=== PATIENT | male | born 1995 | race African-American/Black ===

== ENCOUNTER 2020-03-25 20:43 | Emergency (ER) | payer MEDICAID ==
[~2020-03-25] VITALS: Ht 180.3 cm; Wt 99.8 kg
[2020-03-25] MEDS ORDERED: Omnipaque-300 100ml vial INJ ONE (21:15)
[2020-03-25 21:18] LABS: APPEARANCE,URINE CLEAR; BASOPHILS % (AUTO) 2.1 % (0.0-2.0); BILIRUBIN, URINE NEGATIVE (NEGATIVE); COLOR,URINE PALE YELLOW; EOSINOPHILS % (AUTO) 3.6 % (0.0-3.0); GLUCOSE, URINE (UA) NEGATIVE (NEGATIVE); HEMATOCRIT 49.6 % (42.0-52.0); HEMOGLOBIN 16.5 G/DL (14.2-18.0); KETONES,URINE NEGATIVE (NEGATIVE); LEUKOCYTE ESTERASE ,URINE NEGATIVE (NEGATIVE); MEAN CORPUSCULAR VOLUME 93 FL (80-99); MONOCYTES % (AUTO) 7.9 % (1.0-10.0); NEUTROPHILS % (AUTO) 52.4 % (45.0-75.0); NITRITE,URINE NEGATIVE (NEGATIVE); PH,URINE 5 (4.5-8.0); PLATELET COUNT 161 K/UL (150-450); PROTEIN,URINE NEGATIVE (NEGATIVE); RED BLOOD COUNT 5.31 M/UL (4.70-6.10); RED CELL DISTRIBUTION WIDTH 13.1 % (11.6-14.8); UROBILINOGEN,URINE NORMAL MG/DL (0.0-1.0); WHITE BLOOD COUNT 10.2 K/UL (4.8-10.8)
--- NOTE | 2020-03-25 21:20 | Emergency Room Report ---
History of Present Illness General Chief Complaint: Abdominal Pain Source: Patient Present Illness HPI Disclaimer: Please note that this report is being documented using DRAGON technology. This can lead to erroneous entry secondary to incorrect interpretation by the dictating instrument. HPI: 24-year-old male with history of pancreatitis presents for evaluation of abdominal pain. The patient notes a sharp and sometimes aching epigastric and periumbilical abdominal pain for the past 3 weeks. Pain is exacerbated by eating and relieved by rest. He has not been using antacids. He denies recent alcohol use. States it feels similar to his prior episodes of pancreatitis but has no history of gallstones or gallbladder disease. Denies fever, chills. This afternoon while at work the pain was more intense and radiated to his back and upper chest. He denied shortness of breath cough. He did note one episode of hemoptysis which described a blood clot that he brought up. He has had vomiting and diarrhea intermittently throughout the past 3 weeks. 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 Denies drug use. Occasional tobacco use. 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 EOMI. Cardiovascular: RRR. S1 and S2 normal. No murmur appreciated Resp: Normal work of breathing. No cough, wheezing or crackles appreciated Abdomen: Abdomen is soft, nondistended. There is mild tenderness in the epigastrium and periumbilical region. No significant tenderness in the right upper quadrant and no Villareal's tenderness. No rebound in the right lower quadrant or tenderness. Skin: Intact. No abrasions, laceration or rash over the exposed skin MSK: Normal tone and bulk. Moving all extremities. No obvious deformity. Neuro: Awake and alert. Mentating appropriately. Medical Decision Making Diagnostic Impression: Primary Impression: Abdominal pain ER Course 24-year-old male history of pancreatitis presents evaluation of abdominal pain and vomiting now radiating to the upper chest and one episode of hemoptysis. Differential includes was not limited to gastritis, gastroenteritis, peptic ulcer, perforated ulcer, pancreatitis, cholecystitis, choledocholithiasis, appendicitis, bowel obstruction, GERD, esophagitis, ACS to name a few. IV line established, patient receiving IV fluids, antiemetics, antacids. Will send broad labs and send patient for CT scan of the torso to evaluate for follow-up possible perforated ulcer. 2230: Labs have returned within normal limits. No evidence of pancreatitis, hepatic obstruction, cholecystitis, no white count, normal renal function. CT scan of the torso with IV contrast does not show signs of esophagitis, perforated ulcer , intra-abdominal mass or other pathology. Patient likely has gastritis and will be started on antacids and antiemetics. He will be referred to primary care clinic to establish himself as a new patient and for referral to gastroenterology. He is well-appearing stable for outpatient treatment. I discussed with him reasons to return to the emergency department and included copies of his CT results in his discharge paperwork. He understands and agrees with the treatment will be discharged home. Laboratory Tests Test 03/25/20 20:50 White Blood Count 10.2 K/UL (4.8-10.8) Red Blood Count 5.31 M/UL (4.70-6.10) Hemoglobin 16.5 G/DL (14.2-18.0) Hematocrit 49.6 % (42.0-52.0) Mean Corpuscular Volume 93 FL (80-99) Mean Corpuscular Hemoglobin 31.0 PG (27.0-31.0) Mean Corpuscular Hemoglobin Concent 33.3 G/DL (32.0-36.0) Red Cell Distribution Width 13.1 % (11.6-14.8) Platelet Count 161 K/UL (150-450) Mean Platelet Volume 9.0 FL (6.5-10.1) Neutrophils (%) (Auto) 52.4 % (45.0-75.0) Lymphocytes (%) (Auto) 34.0 % (20.0-45.0) Monocytes (%) (Auto) 7.9 % (1.0-10.0) Eosinophils (%) (Auto) 3.6 % (0.0-3.0) H Basophils (%) (Auto) 2.1 % (0.0-2.0) H Prothrombin Time 11.6 SEC (9.30-11.50) H Prothrombin Time INR 1.1 (0.9-1.1) Activated Partial Thromboplast Time 31 SEC (23-33) Urine Color Pale yellow Urine Appearance Clear Urine pH 5 (4.5-8.0) Urine Specific [place] 1.020 (1.005-1.035) Urine Protein Negative (NEGATIVE) Urine Glucose (UA) Negative (NEGATIVE) Urine Ketones Negative (NEGATIVE) Urine Blood Negative (NEGATIVE) Urine Nitrite Negative (NEGATIVE) Urine Bilirubin Negative (NEGATIVE) Urine Urobilinogen Normal MG/DL (0.0-1.0) Urine Leukocyte Esterase Negative (NEGATIVE) Sodium Level 139 MMOL/L (136-145) Potassium Level 3.7 MMOL/L (3.5-5.1) Chloride Level 102 MMOL/L (98-107) Carbon Dioxide Level 27 MMOL/L (21-32) Anion Gap 10 mmol/L (5-15) Blood Urea Nitrogen 22 mg/dL (7-18) H Creatinine 1.2 MG/DL (0.55-1.30) Estimated Glomerular Filtration Rate > 60 mL/min (>60) Glucose Level 107 MG/DL (74-106) H Calcium Level 9.0 MG/DL (8.5-10.1) Total Bilirubin 0.2 MG/DL (0.2-1.0) Aspartate Amino Transferase (AST) 20 U/L (15-37) Alanine Aminotransferase (ALT) 26 U/L (12-78) Alkaline Phosphatase 55 U/L (46-116) Troponin I 0.000 ng/mL (0.000-0.056) Total Protein 7.5 G/DL (6.4-8.2) Albumin 3.9 G/DL (3.4-5.0) Globulin 3.6 g/dL Albumin/Globulin Ratio 1.1 (1.0-2.7) Lipase 274 U/L (73-393) EKG Diagnostic Results EKG Time: 20:55 Rate: normal Rhythm: NSR ST Segments: no acute changes Other Impression Borderline tachycardia, normal axis, normal intervals, no ST segment changes. Rhythm Strip Diag. Results Rhythm Strip Time: 20:55 EP Interpretation: yes Rate: 98 Rhythm: NSR, no PVC's, no ectopy CT/MRI/US Diagnostic Results CT/MRI/US Diagnostic Results : Impression CT CHEST IMPRESSION: 1. No acute abnormality definitively identified to account for patient presentation. 2. Unremarkable study. CT ABD PEL IMPRESSION: 1. No acute abnormality definitively identified to account for patient presentation. 2. Unremarkable study. Dictated By: Sebas Garcia MD Electronically Signed By: Sebas Garcia MD Signed Date/Time 03/25/20 [id number] CC: Antonio Bateman MD Last Vital Signs Date Time Temp Pulse Resp B/P (MAP) Pulse Ox O2 Delivery O2 Flow Rate FiO2 03/25/20 20:47 98.4 99 20 151/89 (109) 99 Room Air Disposition: HOME, SELF-CARE Condition: Stable Scripts Ondansetron Odt* (ZOFRAN ODT*) 4 Mg Tab.rapdis 4 MG BC EVERY 6 HOURS PRN for Nausea & Vomiting, #10 TAB 0 Refills Prov: Antonio Bateman MD 03/25/20 Famotidine* (Pepcid 20mg tablet*) 20 Mg Tablet 20 MG ORAL DAILY, #30 TAB 0 Refills Prov: Antonio Bateman MD 03/25/20 Referrals: NOT CHOSEN IPA/,REFERRING (PCP) Antonio Bateman MD Mar 25, 2020 21:20
[2020-03-25 21:30] LABS: ANION GAP 10 mmol/L (5-15); BLOOD UREA NITROGEN 22 mg/dL (7-18); CARBON DIOXIDE 27 MMOL/L (21-32); CHLORIDE 102 MMOL/L (98-107); CREATININE 1.2 MG/DL (0.55-1.30); POTASSIUM 3.7 MMOL/L (3.5-5.1); SODIUM 139 MMOL/L (136-145)
[2020-03-25 21:33] LABS: INR 1.1 (0.9-1.1)
[2020-03-25 21:36] LABS: ALANINE AMINOTRANSFERASE 26 U/L (12-78); ALBUMIN 3.9 G/DL (3.4-5.0); ALBUMIN/GLOBULIN RATIO 1.1 (1.0-2.7); ALKALINE PHOSPHATASE 55 U/L (46-116); ASPARTATE AMINO TRANSFERASE 20 U/L (15-37); BILIRUBIN,TOTAL 0.2 MG/DL (0.2-1.0)
[2020-03-25] MEDS ORDERED: Morphine Sulfate 2mg/ml Inj(IV/IM USE ONLY) IVP ONE (22:15)
--- NOTE | 2020-03-25 22:19 | Diagnostic Imaging Report ---
EXAM: CT Chest With Intravenous Contrast CLINICAL HISTORY: ABD PAIN TECHNIQUE: Axial computed tomography images of the chest with intravenous contrast. CTDI is 18 mGy and DLP is 1030 mGy-cm. One or more of the following dose reduction techniques were used: automated exposure control, adjustment of the mA and/or kV according to patient size, use of iterative reconstruction technique. COMPARISON: No relevant prior studies available. FINDINGS: Lungs: Unremarkable. No mass. No consolidation. Pleural space: Unremarkable. No pneumothorax. No significant effusion. Heart: Unremarkable. No cardiomegaly. No significant pericardial effusion. Bones/joints: Unremarkable. No acute fracture. No dislocation. Soft tissues: Unremarkable. Vasculature: Unremarkable. No thoracic aortic aneurysm. Lymph nodes: Unremarkable. No enlarged lymph nodes. IMPRESSION: 1. No acute abnormality definitively identified to account for patient presentation. 2. Unremarkable study. EXAM: CT Abdomen and Pelvis With Intravenous Contrast CLINICAL HISTORY: ABD PAIN TECHNIQUE: Axial computed tomography images of the abdomen and pelvis with intravenous contrast. CTDI is 18 mGy and DLP is 1030 mGy-cm. One or more of the following dose reduction techniques were used: automated exposure control, adjustment of the mA and/or kV according to patient size, use of iterative reconstruction technique. Coronal and sagittal reformatted images were created and reviewed. COMPARISON: No relevant prior studies available. FINDINGS: Lung bases: Unremarkable. No mass. No consolidation. ABDOMEN: Liver: Unremarkable. No mass. Gallbladder and bile ducts: Unremarkable. No calcified stones. No ductal dilation. Pancreas: Unremarkable. No mass. No ductal dilation. Spleen: Unremarkable. No splenomegaly. Adrenals: Unremarkable. No mass. Kidneys and ureters: Unremarkable. No solid mass. No hydronephrosis. Stomach and bowel: Unremarkable. No obstruction. No mucosal thickening. PELVIS: Appendix: No findings to suggest acute appendicitis. Bladder: Unremarkable. No mass. Reproductive: Unremarkable as visualized. ABDOMEN and PELVIS: Intraperitoneal space: Unremarkable. No free air. No significant fluid collection. Bones/joints: No acute fracture. No dislocation. Soft tissues: Unremarkable. Vasculature: Unremarkable. No abdominal aortic aneurysm. Lymph nodes: Unremarkable. No enlarged lymph nodes.
[2020-03-25] MEDS ORDERED: FAMOTIDINE20 MG ORAL (22:24)
[2020-03-25] MEDS ORDERED: ONDANSETRON ODT4 MG BC (22:24)
[2020-03-25 22:42] VITALS: BP 124/82
== END 2020-03-25 22:47 | disposition home or self-care (01) ==
LOC: EMR 20:58
DX: R10.13 Epigastric pain (principal); F17.200 Nicotine dependence, unspecified, uncomplicated
CPT/HCPCS: 36415; 71260; 74177; 80053; 81003; 83690; 84484; 85025; 85610; 85730; 86850; 86900; 86901; 93005; 96361; 96374; 96375; J2270; J2405; J7030; Q9967; S0028; Z7502; 99284